=== PATIENT | female | born 1965 | race Caucasian/White ===

== ENCOUNTER 2019-09-26 08:00 | Outpatient (CLI) | payer BC ==
[2016-01-07 09:41] VITALS: BMI 17.8
[~2019-09-26 08:00] MED LIST: KEPPRA500 MG PO; LISINOPRIL10 MG PO
== END 2019-09-26 14:17 | disposition home or self-care (01) ==
LOC: D.MAMMO 08:00
PROVIDERS: ATTEND Nurse Practitioner Family
DX: Z12.31 Encounter for screening mammogram for malignant neoplasm of breast (principal)

== ENCOUNTER 2019-10-11 13:00 | Outpatient (CLI) | payer BC ==
[2016-01-07 09:41] VITALS: BMI 17.8
== END 2019-10-11 13:01 | disposition home or self-care (01) ==
LOC: D.MAMMO 13:00
PROVIDERS: ATTEND Nurse Practitioner Family
DX: R92.8 Other abnormal and inconclusive findings on diagnostic imaging of breast (principal)